=== PATIENT | female | born 1950 | race Caucasian/White ===

== ENCOUNTER → 2016-11-29 | Outpatient (CLI) | payer MEDICARE ==
[~2016-11-29] MED LIST: REGADENOSON 0.4 MG/5 ML DISP.SYRIN. IV ONE
== END | disposition home or self-care (01) ==
LOC: PCVCIMAG 08:16
PROVIDERS: ATTEND Internal Medicine
DX: I63.8 Other cerebral infarction (principal); R07.9 Chest pain, unspecified; R00.2 Palpitations; K21.9 Gastro-esophageal reflux disease without esophagitis
CPT/HCPCS: 78452; 93017; 93306; 93880; A9500; J2785

== ENCOUNTER → 2016-12-26 | Outpatient (CLI) | payer MEDICARE | END | disposition home or self-care (01) | LOC: PCVCIMAG 10:47 | PROVIDERS: ATTEND Internal Medicine | DX: E04.1 Nontoxic single thyroid nodule (principal); R07.9 Chest pain, unspecified; I63.9 Cerebral infarction, unspecified; K21.9 Gastro-esophageal reflux disease without esophagitis | CPT/HCPCS: 76536 ==

== ENCOUNTER → 2018-06-03 | Outpatient (CLI) | payer MEDICARE | END | disposition home or self-care (01) | LOC: PCVCCLINIC 15:42 | PROVIDERS: ATTEND Nuclear Medicine Nuclear Cardiology | DX: I73.9 Peripheral vascular disease, unspecified (principal); I10 Essential (primary) hypertension; F17.200 Nicotine dependence, unspecified, uncomplicated; E11.9 Type 2 diabetes mellitus without complications; K21.9 Gastro-esophageal reflux disease without esophagitis; I77.9 Disorder of arteries and arterioles, unspecified; R06.09 Other forms of dyspnea | CPT/HCPCS: G0463 ==

== ENCOUNTER → 2018-09-10 | Outpatient (CLI) | payer MEDICARE ==
--- NOTE | 2018-09-10 14:59 | PCVCIMAG ---
EXAM: BILATERAL CAROTID DUPLEX INDICATION: Carotid Occlusive Disease. FINDINGS: Doppler Measurements (centimeters per second): RIGHT: Peak CCA-78, Peak ECA-92, Diastolic ICA-33, Peak ICA-98, ICA/CCA Ratio-1.3. LEFT: Peak CCA-80, Peak ECA-90, Diastolic ICA-30, Peak ICA-88, ICA/CCA Ratio-1.1. RIGHT CAROTID: The carotid bulb has mild plaque. The proximal internal carotid artery shows <40% stenosis. The common carotid artery shows no significant stenosis. The external carotid artery shows no significant stenosis. LEFT CAROTID: The carotid bulb has mild plaque. The proximal internal carotid artery shows <40% stenosis. The common carotid artery shows no significant stenosis. The external carotid artery shows no significant stenosis. Antegrade flow in both vertebral arteries. IMPRESSION: <40% stenosis of the right internal carotid artery with mild plaque. <40% stenosis of the left internal carotid artery with mild plaque. LOC:[place] [id number]
--- NOTE | 2018-09-10 15:02 | PCVCIMAG ---
EXAM: RIGHT LOWER EXTREMITY ARTERIAL DUPLEX INDICATION: Peripheral Arterial Disease. Leg pain. FINDINGS: Right Leg: Common femoral and profunda femoral arteries are patent. Superficial femoral artery and popliteal artery are patent. Previous stent distal superficial femoral artery and upper popliteal artery maintaining good patency. Unchanged occlusion peroneal artery and posterior tibial artery. Anterior tibial artery remains patent. IMPRESSION: Previous right distal superficial femoral artery and upper popliteal artery stent maintaining good patency. Unchanged occlusion of the right peroneal and posterior tibial arteries. LOC:[id number]
--- NOTE | 2018-09-11 16:51 | PCVCIMAG ---
EXAM: ULTRASOUND OF THE THYROID INDICATION: Thyroid nodules. FINDINGS: The right thyroid lobe measures 4.7 x 1.8 x 1.8 cm. The left thyroid lobe measures 4.8 x 1.6 x 1.5 cm. 0.6 x 1.0 x 1.1 cm hypoechoic nodule mid right thyroid lobe is unchanged compared to December 2016 study. Previous hypoechoic nodule in the left submandibular region measures 0.9 cm in this was present previously and is smaller today. There is an increased number of lymph nodes throughout the neck ranging in size from 1/2 to 2 cm. This is a nonspecific finding but could be related to a lymphoproliferative disorder or be reactive in origin. Please correlate clinically. There is a new 0.8 x 1.2 x 1.6 hypoechoic nodule lateral to the lower pole of the thyroid gland which is external to the thyroid. This was not seen previously and is indeterminate. IMPRESSION: 1. Unchanged 1.1 cm hypoechoic mid thyroid lobe nodule. 2. Previous left submandibular region solid nodule has decreased in size since 2017 study. 3. There is a new 1.6 cm solid nodule lateral to the lower left thyroid lobe which is outside of the thyroid gland. 4. Increased number of mildly enlarged lymph nodes throughout the neck bilaterally has developed since 2017 and raises concern for lymphoproliferative disorder. Please correlate clinically. Further evaluation by ENT may be of value. LOC:[id number]
== END | disposition home or self-care (01) ==
LOC: PCVCIMAG 13:50
PROVIDERS: ATTEND Nuclear Medicine Nuclear Cardiology
DX: I65.23 Occlusion and stenosis of bilateral carotid arteries (principal); I73.9 Peripheral vascular disease, unspecified; E04.1 Nontoxic single thyroid nodule; I77.9 Disorder of arteries and arterioles, unspecified
CPT/HCPCS: 76536; 93880; 93926; G0463